=== PATIENT | female | born 1990 ===

== ENCOUNTER 2020-04-12 14:15 | Outpatient (REF) | payer OTHER, SELFPAY ==
[2020-04-12 17:02] LABS: Syphilis Screen Nonreactive (Nonreactive)
[2020-04-13 08:10] LABS: HIV AB/AG Nonreactive (Nonreactive); ~HepC Num1 0.09 S/CO (0.00-0.79); ~Hepatitis C Antibody Nonreactive (Nonreactive)
[2020-04-13 08:58] LABS: Hepatitis B Core Antibody Nonreactive (Nonreactive)
[2020-04-13 09:39] LABS: BV Int Neg Control Negative (Negative); BV Int Pos Control Positive (Positive)
[2020-04-14 00:16] LABS: C. trachomatis RNA TMA DETECTED (NOT DETECTED); N. gonorrhoeae RNA TMA NOT DETECTED (NOT DETECTED)
== END 2020-04-12 14:16 | disposition home or self-care (01) ==
LOC: HO.LAB 14:15
PROVIDERS: PCP Internal Medicine; Visit Provider Advanced Practice Midwife
DX: N89.8 Other specified noninflammatory disorders of vagina (principal); Z20.2 Contact with and (suspected) exposure to infections with a predominantly sexual mode of transmission; Z11.3 Encounter for screening for infections with a predominantly sexual mode of transmission; F17.200 Nicotine dependence, unspecified, uncomplicated
CPT/HCPCS: 36415; 86704; 86780; 86803; 87389; 87480; 87491; 87510; 87591; 87660; 99212

== ENCOUNTER 2020-08-11 14:01 | Outpatient (REF) | payer OTHER, SELFPAY ==
[2020-08-12 12:42] LABS: CT PCR NOT DETECTED (Not Detect.); NG PCR NOT DETECTED (Not Detect.)
[2020-08-12 12:47] LABS: BV Int Neg Control Negative (Negative); BV Int Pos Control Positive (Positive)
== END 2020-08-11 14:02 | disposition home or self-care (01) ==
LOC: HO.LAB 14:01
PROVIDERS: PCP Internal Medicine; Visit Provider Advanced Practice Midwife
DX: Z12.4 Encounter for screening for malignant neoplasm of cervix (principal); Z11.3 Encounter for screening for infections with a predominantly sexual mode of transmission; Z20.2 Contact with and (suspected) exposure to infections with a predominantly sexual mode of transmission; N89.8 Other specified noninflammatory disorders of vagina
CPT/HCPCS: 87480; 87491; 87510; 87591; 87660; 99212

== ENCOUNTER 2020-09-13 14:42 | Outpatient (REF) | payer OTHER, SELFPAY ==
[2020-09-14 02:38] LABS: CT PCR NOT DETECTED (Not Detect.); NG PCR NOT DETECTED (Not Detect.)
[2020-09-14 13:05] LABS: BV Int Neg Control Negative (Negative); BV Int Pos Control Positive (Positive)
== END 2020-09-13 14:43 | disposition home or self-care (01) ==
LOC: HO.LAB 14:42
PROVIDERS: PCP Internal Medicine; Visit Provider Advanced Practice Midwife
DX: Z11.3 Encounter for screening for infections with a predominantly sexual mode of transmission (principal); B37.3 Candidiasis of vulva and vagina; N20.2 Calculus of kidney with calculus of ureter; N89.8 Other specified noninflammatory disorders of vagina
CPT/HCPCS: 81025; 87480; 87491; 87510; 87591; 87660; 99212

== ENCOUNTER 2020-11-01 11:10 | Outpatient (REF) | payer OTHER, SELFPAY ==
[2020-11-02 05:25] LABS: CT PCR NOT DETECTED (Not Detect.); NG PCR NOT DETECTED (Not Detect.)
[2020-11-02 08:33] LABS: BV Int Neg Control Negative (Negative); BV Int Pos Control Positive (Positive)
== END 2020-11-01 11:11 | disposition home or self-care (01) ==
LOC: HO.LAB 11:10
PROVIDERS: PCP Internal Medicine; Visit Provider Obstetrics & Gynecology
DX: Z11.3 Encounter for screening for infections with a predominantly sexual mode of transmission (principal); R10.2 Pelvic and perineal pain
CPT/HCPCS: 81003; 81025; 87480; 87491; 87510; 87591; 87660; 99212

== ENCOUNTER 2020-11-01 11:52 | Emergency (ER) | payer OTHER, SELFPAY ==
--- NOTE | ~2020-11-01 | CT_ITS ---
EXAMINATION: CT ABDOMEN AND PELVIS WITHOUT CONTRAST CLINICAL INFORMATION: Right lower quadrant pain. Rule out appendicitis. COMPARISON: Pelvic ultrasound from earlier the same day TECHNIQUE: Multidetector volumetric imaging was performed from the superior aspect of the liver through the pubic symphysis. Sagittal and coronal reformatted images were obtained on the technologist's workstation. This CT examination was performed using dose optimization techniques as appropriate, variously including the following: *Automated exposure control *Adjustment of mA and/or kV according to patient size (this includes techniques or standardized protocols for targeted exams where dose is matched to indication/reason for exam; i.e. extremities or head) *Use of iterative reconstruction technique DLP: 560 mGy-cm FINDINGS: LUNG BASES: The visualized lung bases are unremarkable. LIVER, GALLBLADDER, AND BILIARY TREE: The liver is normal in size, shape, and attenuation. No focal hepatic lesion or biliary ductal dilatation is present. The gallbladder is unremarkable. There may be a phrygian cap. PANCREAS: Unremarkable. SPLEEN: Unremarkable. ADRENAL GLANDS: Unremarkable. KIDNEYS AND URETERS: The kidneys are normal in size, shape, and attenuation. No hydronephrosis, hydroureter, or calculi seen. No perinephric stranding. BLADDER: Unremarkable. GASTROINTESTINAL TRACT: The small and large bowel are unremarkable. The appendix is unremarkable. ABDOMINAL WALL: No significant hernia is appreciated. LYMPH NODES: Normal. VASCULAR: Unremarkable. PELVIC VISCERA: There is a 5.6 cm right adnexal cyst. This has a slightly thickened wall. The uterus and left adnexa are unremarkable. There is a small amount of fluid in the pelvis adjacent to the cyst.. OSSEOUS STRUCTURES: Unremarkable. CT/CT abdomen pelvis wo con IMPRESSION: 5.6 cm complex right adnexal cyst and small amount of adjacent fluid. Normal-appearing appendix.
--- NOTE | ~2020-11-01 | US_ITS ---
EXAMINATION: US PELVIS CLINICAL INFORMATION: Pelvic pain. COMPARISON: None TECHNIQUE: Ultrasound of the pelvis is performed using both transabdominal and transvaginal transducers along with Doppler. Transvaginal imaging is performed due to inadequate visualization transabdominally. FINDINGS: Uterus: The uterus is anteverted, anteflexed and measures 8.3 x 3.6 x 5.2 cm. The uterus is homogeneous in echotexture. The double wall endometrial thickness is 0.94 mm. The uterus is smooth in contour and has normal myometrial echogenicity. No visible fibroid. Adnexa: Both ovaries are visualized. There is normal color flow to the adnexa. There is no ovarian torsion. There is no pelvic ascites or fluid collection. Right ovary measures 7.6 x 5.6 x 8.0 and volume 178.1 mL. There are is an anechoic complex cyst measuring 4.7 x 5.0 x 4.6 cm. Left ovary measures 3.1 x 2.0 x 2.8 and volume 9.09 mL. There is normal bilateral Doppler flow seen to ovaries. US/US pelvic ovarian doppler IMPRESSION: Complex cyst right ovary measuring 5.0 cm. The left ovary is unremarkable. Normal bilateral Doppler ovarian flow seen.
--- NOTE | ~2020-11-01 | US_ITS ---
EXAMINATION: US PELVIS CLINICAL INFORMATION: Pelvic pain. COMPARISON: None TECHNIQUE: Ultrasound of the pelvis is performed using both transabdominal and transvaginal transducers along with Doppler. Transvaginal imaging is performed due to inadequate visualization transabdominally. FINDINGS: Uterus: The uterus is anteverted, anteflexed and measures 8.3 x 3.6 x 5.2 cm. The uterus is homogeneous in echotexture. The double wall endometrial thickness is 0.94 mm. The uterus is smooth in contour and has normal myometrial echogenicity. No visible fibroid. Adnexa: Both ovaries are visualized. There is normal color flow to the adnexa. There is no ovarian torsion. There is no pelvic ascites or fluid collection. Right ovary measures 7.6 x 5.6 x 8.0 and volume 178.1 mL. There are is an anechoic complex cyst measuring 4.7 x 5.0 x 4.6 cm. Left ovary measures 3.1 x 2.0 x 2.8 and volume 9.09 mL. There is normal bilateral Doppler flow seen to ovaries. US/US pelvic and transvaginal IMPRESSION: Complex cyst right ovary measuring 5.0 cm. The left ovary is unremarkable. Normal bilateral Doppler ovarian flow seen.
[2020-11-01 12:07] VITALS: BP 134/67; PULSE 88; RESP 18; TEMP 37.1; O2SAT 100; BMI 29.9
--- NOTE | 2020-11-01 12:34 | ED.GENADULT ---
HPI - General Adult General Chief complaint: Abdominal Pain Stated complaint: multiple complaints Time Seen by Provider: 11/01/20 12:32 Source: patient Mode of arrival: ambulatory Limitations: no limitations History of Present Illness HPI narrative: 30-year-old female came in for evaluation of pelvic pain. Pain started 2 weeks ago after sexual intercourse, pain gotten been better for the past 2 weeks until today she had a sexual intercourse and started to have lower pelvic pain, patient declined any vaginal bleed or discharge, no nausea, no vomiting. Patient describes the pain as constant for 2 weeks for gotten worse today after sexual intercourse, nothing make it better, no other associated symptoms, no nausea, no vomiting. Related Data Previous Rx's Medication Instructions Recorded fluconazole 150 mg tablet 150 mg PO Q3D #2 tab 09/14/20 Allergies Allergy/AdvReac Type Severity Reaction Status Date / Time No Known Allergies Allergy Verified 11/01/20 11:17 Review of Systems Review of Systems: All other systems are reviewed and are negative Constitutional: Reports as per HPI and Reports no additional constitutional complaints Eyes: Reports as per HPI and Reports no additional eye complaints Reports system reviewed and no additional complaints, except as documented Cardiovascular: Reports as per HPI and Reports no additional cardiovascular complaints Respiratory: Reports as per HPI and Reports no additional respiratory complaints Gastrointestinal: Reports as per HPI and Reports no additional gastrointestinal complaints Genitourinary: Reports no additional female genitourinary complaints Musculoskeletal: Reports no additional musculoskeletal complaints Skin/Breast: Reports system reviewed and no additional complaints, except as docu Psychiatric: Reports no additional psychiatric complaints Endocrine: Reports no additional endocrine complaints Hematologic/Lymphatic: Reports no additional hematologic/lymphatic complaints Allergic/Immunologic: Reports no additional allergic/immunologic complaints Reports system reviewed and no additional complaints, except as documented and Reports Abnormal speech present [facility] Past Medical History Medical History Nerve damage Surgical History H/O oral surgery Social History Social History Alcohol intake: never Patient Tobacco Use Status: Never used Tobacco Cigarettes Per Day: 3 Use of substances other than those prescribed or required for medical reasons: No Advance Directives: No Advance Directives Information Provided: No Gender identity: Female Physical Exam Vital Signs: Vital Signs: Last Vital Signs Temp 98.5 F 11/01/20 13:59 Pulse 78 11/01/20 13:59 Resp 16 11/01/20 13:59 BP 127/71 11/01/20 13:59 Pulse Ox 100 11/01/20 13:59 Body Mass Index 29.9 Vital signs have been reviewed as appeared to be correct. Blood pressure normal. Heart rate normal. Respiration rate normal. Temperature normal. Oxygen saturation normal. Appearance: Alert. Oriented X3. No acute distress. Head: Normal external exam. Normocephalic. Atraumatic. No Ochoa signs noted. No raccoon eyes noted Eyes: PERRLA. EOMI. Conjunctiva and sclera normal. Eyelids normal. ENT: TM's Normal. Pharynx normal. Uvula midline. Moist mucous membranes. No trismus noted. No drooling noted. No muffled voice noted. Neck: Normal inspection. Neck supple. FROM. No adenopathy. Thyroid Normal. No meningeal signs. No neck mass noted. CVS: Normal heart rate and rhythm. Heart sound normal. No murmurs noted. Pulses normal throughout. Respiratory: No respiratory distress. Painless inspiration. Breath sounds normal. No wheezes/rales/rhonchi noted. Chest nontender. No accessory muscle usage noted or decreased air movement noted. Abdomen: Soft and nontender. Bowel sounds normal in all 4 quadrants. No distention noted. No organomegaly noted. No visible injury noted. Pelvic exam, deferred was done by Dr. Gagandeep shaw today. Back: No CVA tenderness. Full range of motion noted. Skin: Skin warm and dry. Normal skin color. Normal skin turgor. No rashes/lesions/lacerations noted. Extremities: No lower extremity edema. Extremities exhibit normal range of motion. Extremities nontender. Neuro: Oriented X 3. Cranial nerve exam: II-XII are grossly intact No motor deficit. No sensory deficit. Reflexes normal. Course Course Course Narrative: Assessment and plan. [age] year old female referred from Dr. Donis ED for evaluation of right lower quadrant pain, await for CT of the abdomen pelvis to rule out acute appendicitis. As per Dr. Donis your recommendation if there is no acute appendicitis and the CT patient should be treated for PID. The case signed out to Dr. Soto. Medical Decision Making Lab Data Lab results reviewed: Yes I reviewed the patient's lab results. Result diagrams: 11/01/20 12:46 11/01/20 13:30 Labs: Lab Results 11/01/20 11/01/20 11/01/20 Range/Units 12:46 12:46 12:46 WBC 9.3 (4.8-10.8) X10*3/uL RBC 4.42 (4.20-5.50) X10*6/uL Hgb 13.2 (12.0-16.0) g/dl Hct 40.4 (37-47) % MCV 91.4 (80-98) fL MCH 29.9 (27.0-33.0) pg MCHC 32.7 (31.0-35.0) g/dl RDW 12.5 (11.0-16.0) % Plt Count 276 (160-400) X10*3/uL MPV 10.3 (9.4-12.3) fL Immature Gran % (Auto) 0.2 (0.0-0.4) % Neut % (Auto) 59.2 (45-73) % Lymph % (Auto) 31.8 (20-40) % [place] % (Auto) 6.9 (2-11) % Eos % (Auto) 1.4 (0-4) % Baso % (Auto) 0.5 (0-2) % Lymph # (Auto) 3.0 (1.2-4.9) X10*3/uL [place] # (Auto) 0.6 (0.1-1.2) X10*3/uL Eos # (Auto) 0.1 (0.0-0.4) X10*3/uL Baso # (Auto) 0.1 (0.0-0.2) X10*3/uL Abs Immat Gran (auto) 0.02 (0.00-0.03) X10*3/uL Absolute Neuts (auto) 5.5 (2.0-8.3) X10*3/uL Absolute Nucleated RBC 0.000 (0.0-0.012) X10*3/uL Nucleated RBC % (auto) 0.0 (0.0-0.2) /100WBC Sodium (135-145) mmol/L Potassium (3.3-5.1) mmol/L Chloride (96-108) mmol/L Carbon Dioxide (22-29) mmol/L Anion Gap (12-20) BUN (9-16) mg/dL Creatinine (0.5-1.4) mg/dL Estim Creat Clear Calc Estimated GFR Random Glucose (60-115) mg/dL Calcium (8.4-10.2) mg/dL Total Bilirubin (0.0-1.0) mg/dL Direct Bilirubin (0.0-0.5) mg/dL AST (5-31) U/L ALT (0-31) U/L Alkaline Phosphatase (39-117) U/L Total Protein (6.5-8.0) g/dL Albumin (3.5-5.0) g/dL Lipase (8-78) U/L Urine Color YELLOW Urine Appearance CLEAR Urine pH 6.0 (5.0-8.0) Ur Specific [place] 1.025 (1.005-1.025) Urine Protein NEG (NEG-TRACE) MG/DL Urine Glucose (UA) NEG (NEG) MG/DL Urine Ketones NEG (NEG) MG/DL Urine Blood TRACE (NEG) Urine Nitrite NEG (NEG) Ur Leukocyte Esterase NEG (NEG) Urine RBC 0-2 (0) /HPF Urine WBC 0-2 (0-4) /HPF Ur Squamous Epith Cells 2+ /LPF Urine Bacteria 1+ /LPF Urine Mucus 1+ /LPF Urine Test NEGATIVE (NEGATIVE) 11/01/20 Range/Units 13:30 WBC (4.8-10.8) X10*3/uL RBC (4.20-5.50) X10*6/uL Hgb (12.0-16.0) g/dl Hct (37-47) % MCV (80-98) fL MCH (27.0-33.0) pg MCHC (31.0-35.0) g/dl RDW (11.0-16.0) % Plt Count (160-400) X10*3/uL MPV (9.4-12.3) fL Immature Gran % (Auto) (0.0-0.4) % Neut % (Auto) (45-73) % Lymph % (Auto) (20-40) % [place] % (Auto) (2-11) % Eos % (Auto) (0-4) % Baso % (Auto) (0-2) % Lymph # (Auto) (1.2-4.9) X10*3/uL [place] # (Auto) (0.1-1.2) X10*3/uL Eos # (Auto) (0.0-0.4) X10*3/uL Baso # (Auto) (0.0-0.2) X10*3/uL Abs Immat Gran (auto) (0.00-0.03) X10*3/uL Absolute Neuts (auto) (2.0-8.3) X10*3/uL Absolute Nucleated RBC (0.0-0.012) X10*3/uL Nucleated RBC % (auto) (0.0-0.2) /100WBC Sodium 138 (135-145) mmol/L Potassium 4.0 (3.3-5.1) mmol/L Chloride 109 H (96-108) mmol/L Carbon Dioxide 22 (22-29) mmol/L Anion Gap 11 L (12-20) BUN 7 L (9-16) mg/dL Creatinine 0.64 (0.5-1.4) mg/dL Estim Creat Clear Calc 133.0 Estimated GFR > 60 Random Glucose 81 (60-115) mg/dL Calcium 8.5 (8.4-10.2) mg/dL Total Bilirubin 0.6 (0.0-1.0) mg/dL Direct Bilirubin < 0.2 (0.0-0.5) mg/dL AST 22 (5-31) U/L ALT 14 (0-31) U/L Alkaline Phosphatase 56 (39-117) U/L Total Protein 6.8 (6.5-8.0) g/dL Albumin 3.6 (3.5-5.0) g/dL Lipase 13 (8-78) U/L Urine Color Urine Appearance Urine pH (5.0-8.0) Ur Specific [place] (1.005-1.025) Urine Protein (NEG-TRACE) MG/DL Urine Glucose (UA) (NEG) MG/DL Urine Ketones (NEG) MG/DL Urine Blood (NEG) Urine Nitrite (NEG) Ur Leukocyte Esterase (NEG) Urine RBC (0) /HPF Urine WBC (0-4) /HPF Ur Squamous Epith Cells /LPF Urine Bacteria /LPF Urine Mucus /LPF Urine Test (NEGATIVE) Imaging Data Pelvic ultrasound: Radiologist's impression: Complex cyst right ovary measuring 5.0 cm. ? The left ovary is unremarkable. ? Normal bilateral Doppler ovarian flow seen. Discharge Plan Discharge Clinical Impression: Abdominal pain Prescriptions: No Action fluconazole 150 mg tablet 150 mg PO Q3D Qty: 2 RF: 2
[2020-11-01 12:50] LABS: MANUAL DIFF FLAG NO
[2020-11-01 12:53] LABS: Basophils Absolute Auto 0.1 X10*3/uL (0.0-0.2); Basophils Percent Auto 0.5 % (0-2); Eosinophils Absolute Auto 0.1 X10*3/uL (0.0-0.4); Eosinophils Percent Auto 1.4 % (0-4); Hematocrit 40.4 % (37-47); Hemoglobin 13.2 g/dl (12.0-16.0); Imm Gran Abs Auto 0.02 X10*3/uL (0.00-0.03); Imm Gran Pct Auto 0.2 % (0.0-0.4); Lymphocytes Percent Auto 31.8 % (20-40); Mean Corpuscular HGB Conc 32.7 g/dl (31.0-35.0); Mean Corpuscular Hemoglobin 29.9 pg (27.0-33.0); Mean Corpuscular Volume 91.4 fL (80-98); Mean Platelet Volume 10.3 fL (9.4-12.3); Monocytes Absolute Auto 0.6 X10*3/uL (0.1-1.2); Monocytes Percent Auto 6.9 % (2-11); Neutrophils Absolute Auto 5.5 X10*3/uL (2.0-8.3); Neutrophils Percent Auto 59.2 % (45-73); Platelet Count 276 X10*3/uL (160-400); Red Blood Count 4.42 X10*6/uL (4.20-5.50); Red Cell Distribution Width 12.5 % (11.0-16.0); White Blood Count 9.3 X10*3/uL (4.8-10.8)
[2020-11-01] MEDS: Morphine Sulfate 2 MG/ML CARTRIDGE IVPUSH (12:54)
[2020-11-01] MEDS: 0.9 % Sodium Chloride 1,000 ML 999 ML IVCONT (12:55)
[2020-11-01 13:01] LABS: Appearance Urine CLEAR; Color Urine YELLOW; Glucose Urine UA NEG (NEG); Leukocyte Esterase Urine NEG (NEG); Nitrite Urine NEG (NEG); Specific Gravity - Urine 1.025 (1.005-1.025); UACC Culture Trigger NO; Urine Blood TRACE (NEG); Urine Ketones NEG (NEG); Urine Protein NEG (NEG-TRACE)
[2020-11-01 13:02] LABS: UPreg QC Valid YES; Urine Pregnancy NEGATIVE (NEGATIVE)
[2020-11-01 13:14] LABS: Bacteria Urine 1+ /LPF; RBC Urine 0-2 /HPF (0); Squamous Epithelial Cell Urine 2+ /LPF
[2020-11-01 13:15] LABS: Mucus Urine 1+ /LPF; WBC Urine 0-2 /HPF (0-4)
[2020-11-01 13:59] VITALS: BP 127/71; PULSE 78; RESP 16; TEMP 36.9; O2SAT 100
[2020-11-01 13:59] LABS: Alanine Aminotransferase 14 U/L (0-31); Albumin Level 3.6 g/dL (3.5-5.0); Alkaline Phosphatase 56 U/L (39-117); Anion Gap 11 (12-20); Aspartate Amino Transferase 22 U/L (5-31); Bilirubin Direct < 0.2 mg/dL (0.0-0.5); Bilirubin Total 0.6 mg/dL (0.0-1.0); Blood Urea Nitrogen 7 mg/dL (9-16); Calcium 8.5 mg/dL (8.4-10.2); Carbon Dioxide 22 mmol/L (22-29); Chloride 109 mmol/L (96-108); Estimated Glomerular Filt Rate > 60; Glucose Random 81 mg/dL (60-115); Lipase 13 U/L (8-78); Sodium 138 mmol/L (135-145); Total Protein 6.8 g/dL (6.5-8.0)
[2020-11-01] MEDS: oxyCODONE HCl Immed Release 5 MG TABLET PO (16:30)
[2020-11-01] MEDS: metroNIDAZOLE 500 MG TABLET PO (18:07)
[2020-11-01] MEDS: cefTRIAXone sodium 500 MG, Lidocaine HCl 1 % MPF 1 ML IM (18:07)
== END 2020-11-01 18:11 | disposition home or self-care (01) ==
PROVIDERS: Emergency Provider Emergency Medicine; PCP Internal Medicine
DX: R10.30 Lower abdominal pain, unspecified (principal); Z79.899 Other long term (current) drug therapy; F17.210 Nicotine dependence, cigarettes, uncomplicated; Z71.6 Tobacco abuse counseling
CPT/HCPCS: 36415; 74176; 76830; 76856; 80048; 80076; 81001; 81003; 81025; 83690; 85025; 93975; 96361; 96365; 96374; 96375; 99284; 99285; J0696; J2270

== ENCOUNTER 2021-02-27 10:00 | Outpatient (REF) | payer OTHER, SELFPAY ==
[2021-02-28 05:26] LABS: CT PCR NOT DETECTED (Not Detect.); NG PCR NOT DETECTED (Not Detect.)
== END 2021-02-27 10:01 | disposition home or self-care (01) ==
LOC: HO.LAB 10:00
PROVIDERS: PCP Internal Medicine; Visit Provider Obstetrics & Gynecology
DX: R10.2 Pelvic and perineal pain (principal); R31.29 Other microscopic hematuria; N83.291 Other ovarian cyst, right side; F17.210 Nicotine dependence, cigarettes, uncomplicated
CPT/HCPCS: 87086; 87491; 87591; 99212

== ENCOUNTER 2021-03-15 14:38 | Outpatient (REF) | payer OTHER, SELFPAY ==
--- NOTE | ~2021-03-15 | US_ITS ---
EXAMINATION: US PELVIS CLINICAL INFORMATION: Ovarian cyst follow-up COMPARISON: Previous CT of the abdomen and pelvis pelvic ultrasound October 2020 TECHNIQUE: Ultrasound of the pelvis is performed using both transabdominal and transvaginal transducers along with Doppler. Transvaginal imaging is performed due to inadequate visualization transabdominally. FINDINGS: The uterus is retroverted and measures 8 x 3.2 x 3.4 cm in dimension. No focal uterine lesion is seen. Endometrial thickness is normal measuring 1.3 cm. The right ovary is enlarged and measures 5.8 x 4.9 x 4.8 cm, volume 71 mL. There is a 5 x 3.9 x 4.6 cm complex cyst in the right ovary with multiple septations. This may have an area of focal wall thickening or solid element for example, image 72. This is similar appearing to October 2020 exam. This is new compared to older exam from 2014. The left ovary is normal appearing and measures 3.8 x 2.2 x 2 cm. There is no fluid in the pelvis. US/US pelvic and transvaginal IMPRESSION: 5 x 3.9 x 4.6 cm complex right ovarian cyst with multiple septations similar to October 2020 exam.
== END 2021-03-15 14:39 | disposition home or self-care (01) ==
LOC: HO.US 14:38
PROVIDERS: Visit Provider Obstetrics & Gynecology
DX: N83.209 Unspecified ovarian cyst, unspecified side (principal); F17.210 Nicotine dependence, cigarettes, uncomplicated; R31.29 Other microscopic hematuria
CPT/HCPCS: 76830; 76856; 99212

== ENCOUNTER → 2021-03-29 10:38 | Outpatient (BNVA) | payer OTHER, SELFPAY | PROVIDERS: PCP Internal Medicine; Visit Provider Obstetrics & Gynecology ==

== ENCOUNTER 2021-04-09 14:33 | Outpatient (REF) | payer OTHER, SELFPAY ==
--- NOTE | ~2021-04-09 | CT_ITS ---
EXAMINATION: CT ABDOMEN AND PELVIS WITHOUT AND WITH CONTRAST CLINICAL INFORMATION: Microscopic hematuria COMPARISON: Previous CT of the abdomen and pelvis most recent October 2020 and pelvic ultrasound February 2021 TECHNIQUE: Multidetector volumetric imaging was performed of the abdomen and pelvis before and after the IV administration of 85 mL of Omnipaque 300 intravenous contrast. Sagittal and coronal reformatted images were obtained on the technologist's workstation. This CT examination was performed using dose optimization techniques as appropriate, variously including the following: *Automated exposure control *Adjustment of mA and/or kV according to patient size (this includes techniques or standardized protocols for targeted exams where dose is matched to indication/reason for exam; i.e. extremities or head) *Use of iterative reconstruction technique DLP: 869 mGy-cm FINDINGS: LUNG BASES: The visualized lung bases are unremarkable. LIVER, GALLBLADDER, AND BILIARY TREE: The liver is normal in size, shape, and attenuation. No focal hepatic lesion or biliary ductal dilatation is present. The gallbladder is contracted. PANCREAS: Unremarkable SPLEEN: Unremarkable ADRENAL GLANDS: Unremarkable KIDNEYS AND URETERS: There is abnormal rotation of both kidneys with anterior orientation of the renal pelvises. Kidneys are otherwise normal. No renal stone, mass or hydronephrosis is seen. The collecting systems are normal. The ureters are normal. BLADDER: Unremarkable GASTROINTESTINAL TRACT: The small and large bowel are unremarkable. The appendix is unremarkable. ABDOMINAL WALL: No significant hernia is appreciated. LYMPH NODES: Normal VASCULAR: Unremarkable PELVIC VISCERA: There is a 4 cm right ovarian cyst. The uterus and ovaries are otherwise unremarkable. OSSEOUS STRUCTURES: Unremarkable CT/CT abdomen pelvis wo/w con IMPRESSION: No cause of hematuria seen. 4 cm right ovarian cyst similar to previous exams. Fleischner guidelines were followed.
[2021-04-09] MEDS: iohexoL 350 MG/ML 100 ML INFUS..BTL IV (14:56)
== END 2021-04-09 14:34 | disposition home or self-care (01) ==
LOC: HO.CT 14:33
PROVIDERS: Visit Provider Obstetrics & Gynecology
DX: R31.29 Other microscopic hematuria (principal)
CPT/HCPCS: 74178; Q9967

== ENCOUNTER 2021-04-16 13:02 | Outpatient (REF) | payer OTHER, SELFPAY ==
[2021-04-17 06:06] LABS: CA-125 4 U/mL (<35)
== END 2021-04-16 13:03 | disposition home or self-care (01) ==
LOC: HO.LAB 13:02
PROVIDERS: PCP Internal Medicine; Visit Provider Obstetrics & Gynecology
DX: N83.299 Other ovarian cyst, unspecified side (principal)
CPT/HCPCS: 36415; 86304

== ENCOUNTER 2022-03-12 14:53 | Outpatient (REF) | payer OTHER, SELFPAY ==
--- NOTE | ~2022-03-12 | CT_ITS ---
EXAMINATION: CT HEAD WITHOUT CONTRAST CLINICAL INFORMATION: Headache. Unspecified. COMPARISON: CT head 12/18/2011. TECHNIQUE: Contiguous axial imaging was performed from the skull base to vertex without intravenous administration of contrast. This CT examination was performed using dose optimization techniques as appropriate, variously including the following: *Automated exposure control *Adjustment of mA and/or kV according to patient size (this includes techniques or standardized protocols for targeted exams where dose is matched to indication/reason for exam; i.e. extremities or head) *Use of iterative reconstruction technique DLP: 703 mGy-cm FINDINGS: No intrarenal hemorrhage, tumors or acute infarcts noted. The ventricles and sulci are normal in size and configuration. No focal parenchymal lesions of the brain or abnormal extra-axial fluid collections. The orbits and globes are normal in appearance. No significant opacification of the visualized paranasal sinuses, mastoid air cells and middle ear cavities. CT/CT head/brain wo IV con IMPRESSION: Normal unenhanced CT of the head.
== END 2022-03-12 14:54 | disposition home or self-care (01) ==
LOC: HO.CT 14:53
PROVIDERS: Visit Provider Nurse Practitioner Family
DX: R51.9 Headache, unspecified (principal); R41.3 Other amnesia; G89.29 Other chronic pain
CPT/HCPCS: 70450

== ENCOUNTER 2022-11-12 14:52 | Outpatient (REF) | payer OTHER, SELFPAY ==
[2022-11-13 15:38] LABS: BV Int Neg Control Negative (Negative); BV Int Pos Control Positive (Positive)
== END 2022-11-12 14:53 | disposition home or self-care (01) ==
LOC: HO.LNP 14:52
PROVIDERS: PCP Internal Medicine; Visit Provider Advanced Practice Midwife
DX: Z11.3 Encounter for screening for infections with a predominantly sexual mode of transmission (principal)
CPT/HCPCS: 87480; 87510; 87660; 99212

== ENCOUNTER 2022-11-12 14:52 | Outpatient (AMB) | payer OTHER, SELFPAY ==
[2022-11-12 15:08] VITALS: BP 114/70; BMI 27.3
--- NOTE | 2022-11-12 15:08 | MHC.OFFVIS ---
Intake Vital Signs 11/12/22 15:08 Height 5 ft 4 in Weight 159 lb BMI 27.3 BP 114/70 Intake Visit Reasons: STD Testing Do not reschedule Intake Note: full std testing Benefit Director Required: No Information Interpreted: non-clinical & clinical Python Programmer: Python Programmer Present (Tesha) Allergies No Known Allergies Allergy (Verified 11/12/22 15:11) Is last menstrual period known: Yes Last menstrual period: 11/08/22 Post menopausal: No HPI STD Testing Do not reschedule HPI Details Patient is here because she wishes to get checked for STDs she is not really having any symptoms but she wants to get checked she generally uses condoms but they broke she is not on anything else for control and does not desire anything else at this time. She also feels a lump and under her clavicle that she wonders if it is a swollen lymph node or something she has felt that for about a month. She is a smoker she denies any injuries to tissue or recent vaccinations or needles in that area. She has her 4-year-old son who is nonverbal with her. [facility] Medical History (Updated 11/12/22 @ 16:29 by Giovana Arnold CNM) Complex ovarian cyst Obesity (BMI 30-39.9) Smoker Nerve damage Surgical History (Updated 11/12/22 @ 15:13 by COREY Perez) Hx of unilateral oophorectomy H/O oral surgery Family History Mother No problems noted. Father High blood pressure Other Mental health problem Social History (Updated 11/12/22 @ 15:13 by COREY Perez) Housing: Apartment Alcohol intake: never Patient Tobacco Use Status: Current everyday Tobacco user Cigarettes Per Day: 3 Years Smoked: pt states quit 3 months ago Substance Use Type: Marijuana service: No Current occupational status: unemployed Gender identity: Female Cognitive needs: No Hearing needs: No Vision needs: No Female Reproductive History Menstrual Age of Menarche: 15 Duration of menses: 3-5 days Date of last menstrual period: 11/08/22 control method: none Total pregnancies: 1 Full term: 1 Number of Living Children: 1 Date of last pap smear: 06/19/18 (negative) History of abnormal pap smear: No Physical Exam Vital Signs: Last Vital Signs BP 114/70 11/12/22 15:08 BMI result Body Mass Index 27.3 Chest Chest palpation & inspection: normal inspection of the chest, normal palpation of entire chest wall and other ([place] like swelling underneath her left clavicle, high on chest wall) Breast/axilla inspection: normal inspection of the breasts and normal inspection of the axillae Breast/axilla palpation: normal palpation of the breasts, normal palpation of the axillae and no axillary lymphadenopathy Speculum Exam - Vagina: normal appearance of the vagina Speculum Exam - Cervix: normal appearance of the cervix, Cervical os closed and normal vervical discharge Assessment & Plan Assessment & Plan (1) Screen for sexually transmitted diseases: Code(s): Z11.3 - Encounter for screening for infections with a predominantly sexual mode of transmission Plan Speculum exam looked completely normal I showed the patient her cervix which looked a completely normal as well. She desires full testing for STIs so labs have been ordered she says she will go soon she patient states she is on the portal so she can get the results herself. We will call her for anything positive there was nothing abnormal that was apparent today. Discussed that condoms can be a very good protection for STIs which is why she uses them is just that sometimes the break. Orders: Orders Hepatitis C Antibody Today Z11.3 - Encounter for screening for infections with a predominantly sexual mode of transmission Bacterial Vaginosis Panel Today Z11.3 - Encounter for screening for infections with a predominantly sexual mode of transmission CT NG by PCR Today Z11.3 - Encounter for screening for infections with a predominantly sexual mode of transmission Syphilis Screen Today Z11.3 - Encounter for screening for infections with a predominantly sexual mode of transmission Hepatitis B Surface Antigen Today Z11.3 - Encounter for screening for infections with a predominantly sexual mode of transmission HIV Ab/Ag Today Z11.3 - Encounter for screening for infections with a predominantly sexual mode of transmission Coding Level of Care Code Est Pt Level 3 (12522) Diagnoses Screen for sexually transmitted diseases Z11.3
== END 2022-11-12 16:18 | disposition home or self-care (01) ==
LOC: HO.HWSM 14:52
PROVIDERS: PCP Internal Medicine; Visit Provider Advanced Practice Midwife
DX: Z11.3 Encounter for screening for infections with a predominantly sexual mode of transmission (principal)
CPT/HCPCS: 99213

== ENCOUNTER 2022-11-12 16:21 | Outpatient (REF) | payer OTHER, SELFPAY ==
[2022-11-12 23:10] LABS: CT PCR NOT DETECTED (Not Detect.); NG PCR NOT DETECTED (Not Detect.)
== END 2022-11-12 16:22 | disposition home or self-care (01) ==
LOC: HO.LAB 16:21
PROVIDERS: PCP Internal Medicine; Visit Provider Advanced Practice Midwife
DX: Z11.3 Encounter for screening for infections with a predominantly sexual mode of transmission (principal)
CPT/HCPCS: 0353U

== ENCOUNTER 2023-11-13 10:35 | Outpatient (REF) | payer OTHER, SELFPAY ==
[2023-11-14 12:23] LABS: CT PCR NOT DETECTED (Not Detect.); NG PCR NOT DETECTED (Not Detect.)
[2023-11-14 14:34] LABS: Bacterial Vaginosis PCR NEGATIVE (Negative); Candida Group PCR DETECTED (Not Detect); Candida glab krusei PCR NOT DETECTED (Not Detect); Trichomonas vaginalis PCR NOT DETECTED (Not Detect)
[2023-11-19 06:08] LABS: HPV 16 RNA NOT DETECTED (NOT DETECTED); HPV mRNA E6/E7 Detected (Not Detected)
== END 2023-11-13 10:36 | disposition home or self-care (01) ==
LOC: HO.LNP 10:35
PROVIDERS: PCP Internal Medicine; Visit Provider Advanced Practice Midwife
DX: Z01.419 Encounter for gynecological examination (general) (routine) without abnormal findings (principal); Z11.3 Encounter for screening for infections with a predominantly sexual mode of transmission
CPT/HCPCS: 0352U; 81025; 87491; 87591; 87624; 87625; 88175; 99395

== ENCOUNTER 2023-11-13 10:35 | Outpatient (AMB) | payer OTHER, SELFPAY ==
[2023-11-13 10:39] VITALS: BP 102/66; BMI 26.9
--- NOTE | 2023-11-13 10:39 | A.OFFVIS_ITS ---
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 She is managing to stay very calm and supportive and directive to within. She has no athletic coordinator concerns she uses either condoms or no sex for control she has lost lots of weight by cutting out sugar and soda and eating very healthy and drinking lots of water. All her time and energy is taken caring for him currently she lives in [place] and there is transportation challenges to get him to services so she does have somebody that is coming helping her currently with speech and other therapy they are done with early intervention at this point though things a quite challenging. She is interested in full STI testing the does not have concerns because she is very strict about her condom use. Her last menstrual period was October 24 and it was normal. [facility] Medical History (Updated 11/13/23 @ 11:21 by Giovana Arnold CNM) Complex ovarian cyst Obesity (BMI 30-39.9) Smoker Nerve damage Surgical History (Updated 11/12/22 @ 15:13 by COREY Perez) Hx of unilateral oophorectomy H/O oral surgery Family History Mother No problems noted. Father High blood pressure Other Mental health problem Social History (Updated 11/12/22 @ 15:13 by COREY Perez) Housing: Apartment Alcohol intake: never Patient Tobacco Use Status: Current everyday Tobacco user Cigarettes Per Day: 3 Years Smoked: pt states quit 3 months ago Substance Use Type: Marijuana Patient : No service: No Current occupational status: unemployed Gender identity: Female Cognitive needs: No Hearing needs: No Vision needs: No Female Reproductive History Menstrual Age of Menarche: 15 Date of last menstrual period: 10/25/23 Physical Exam Vital Signs: Last Vital Signs BP 102/66 11/13/23 10:39 BMI result Body Mass Index 26.9 Const General: healthy appearing, comfortable, no acute distress, well developed and alert Nutritional Appearance: average body habitus Orientation/consciousness: patient oriented x3 Limitations: no limitations HEENT Head: Yes normocephalic Neck Neck: Yes normal visual inspection Chest Chest palpation & inspection: normal inspection of the chest Breast/axilla inspection: normal inspection of the breasts and normal inspection of the axillae Breast/axilla palpation: normal palpation of the breasts and normal palpation of the axillae Resp Effort & Inspection: normal respiratory effort GI Inspection: Yes normal to inspection, No Abdominal wall edema and No distended Palpation (GI): Soft to palpation and nontender Other: External exam within normal limits vagina pink and moist cervix multiparous pink moist clear and white discharge consistent with luteal phase. Cervix long close thick mobile nontender uterus midposition to anteverted mobile nontender adnexa nontender not enlarged good tone with Kegel. General: Yes bladder normal to palpation External Female Exam: normal external appearance and normal appearance of the urethra Speculum Exam - Vagina: normal appearance of the vagina, normal palpation and normal vaginal discharge Speculum Exam - Cervix: normal appearance of the cervix, normal palpation and nontender Bimanual exam- vagina & uterus: normal bimanual exam, normal palpation, uterine size normal, bladder normal to palpation, consistency normal, normal palpation, uterine mobility normal, uterine shape normal, No Cervical tenderness present, non-tender and no cervical motion tenderness Bimanual Exam- Adnexa, other: normal adnexae, no masses, normal and No adnexal tenderness Neuro General: patient oriented x3 Results AMB Test Urine AMB Test Urine Negative Last Edit by Sarah Rocha on 11/13/23 10:54 Results Reviewed Results Reviewed: Laboratory Last Values [facility] Clinic Negative 11/13/23 10:53 Assessment & Plan Assessment & Plan (1) Screen for sexually transmitted diseases: Code(s): Z11.3 - Encounter for screening for infections with a predominantly sexual mode of transmission Category: Medical (2) Screen for sexually transmitted diseases: Code(s): Z11.3 - Encounter for screening for infections with a predominantly sexual mode of transmission Category: Medical (3) Well woman exam with routine gynecological exam: Code(s): Z01.419 - Encounter for gynecological examination (general) (routine) without abnormal findings Category: Medical (4) Uses condoms as primary control method: Code(s): Z78.9 - Other specified health status Category: Social Hx (5) Cervical cancer screening: Code(s): Z12.4 - Encounter for screening for malignant neoplasm of cervix Category: Medical Plan -----Discussed in this visit the following: healthy balanced diet, regular and consistent exercise, getting recommended health screens, doing the best she can for her particular health concerns, kegel exercises, pap smear screening and followup recommendations, mammography screening and SBE, normal changes in cycles in her life stage--- . We will place orders for STI blood work testing she can go downstairs she is on the portal and can get the results that way. Pap smear was done as well as testing for gonorrhea chlamydia trich Erma and Gardnerella but she has no symptoms. Orders: Orders AMB HCG Urine Test Today Z32.02 - Encounter for test, result negative Hepatitis B Surface Antigen Today Z01.419 - Encounter for gynecological examination (general) (routine) without abnormal findings, Z11.3 - Encounter for screening for infections with a predominantly sexual mode of transmission, Z12.4 - Encounter for screening for malignant neoplasm of cervix, Z78.9 - Other specified health status Hepatitis C Antibody Today Z01.419 - Encounter for gynecological examination (general) (routine) without abnormal findings, Z11.3 - Encounter for screening for infections with a predominantly sexual mode of transmission, Z12.4 - Encounter for screening for malignant neoplasm of cervix, Z78.9 - Other specified health status Syphilis Screen Today Z01.419 - Encounter for gynecological examination (general) (routine) without abnormal findings, Z11.3 - Encounter for screening for infections with a predominantly sexual mode of transmission, Z12.4 - Encounter for screening for malignant neoplasm of cervix, Z78.9 - Other specified health status HIV Ab/Ag Today Z01.419 - Encounter for gynecological examination (general) (routine) without abnormal findings, Z11.3 - Encounter for screening for infections with a predominantly sexual mode of transmission, Z12.4 - Encounter for screening for malignant neoplasm of cervix, Z78.9 - Other specified health status Coding Level of Care Code Est Pt Prev Care 18-39y([id number]) Diagnoses Screen for sexually transmitted diseases Z11.3 Well woman exam with routine gynecological exam Z01.419 Uses condoms as primary control method Z78.9 Cervical cancer screening Z12.4
== END 2023-11-13 11:31 | disposition home or self-care (01) ==
PROVIDERS: PCP Internal Medicine; Visit Provider Advanced Practice Midwife
DX: Z01.419 Encounter for gynecological examination (general) (routine) without abnormal findings (principal); Z32.02 Encounter for pregnancy test, result negative
CPT/HCPCS: 99395

== ENCOUNTER 2023-11-13 12:05 | Outpatient (REF) | payer OTHER, SELFPAY ==
[2023-11-14 08:12] LABS: Syphilis Screen Nonreactive (Nonreactive)
[2023-11-14 08:49] LABS: HBsAGNum1 0.54 S/CO (0.00-0.99); HIV AB/AG Nonreactive (Nonreactive); HIV Num 1 0.05 S/CO (0.00-0.99); Hepatitis B Surface Antigen Negative (Negative); ~HepC Num1 0.14 S/CO (0.00-0.79); ~Hepatitis C Antibody Nonreactive (Nonreactive)
== END 2023-11-13 12:06 | disposition home or self-care (01) ==
LOC: HO.HHCL 12:05
PROVIDERS: Visit Provider Advanced Practice Midwife
DX: Z01.419 Encounter for gynecological examination (general) (routine) without abnormal findings (principal); Z11.3 Encounter for screening for infections with a predominantly sexual mode of transmission; Z78.9 Other specified health status
CPT/HCPCS: 36415; 86780; 86803; 87340; 87389

== ENCOUNTER 2024-03-15 13:48 | Outpatient (AMB) | payer OTHER, SELFPAY ==
[2024-03-15 14:21] VITALS: BP 102/60; PULSE 76; TEMP 36.3; O2SAT 98; BMI 26.9
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
== END 2024-03-15 17:20 | disposition home or self-care (01) ==
PROVIDERS: PCP Internal Medicine
DX: Z00.00 Encounter for general adult medical examination without abnormal findings (principal); Z12.4 Encounter for screening for malignant neoplasm of cervix; Z11.3 Encounter for screening for infections with a predominantly sexual mode of transmission; Z87.828 Personal history of other (healed) physical injury and trauma; R41.3 Other amnesia; R51.9 Headache, unspecified; G89.29 Other chronic pain; R59.0 Localized enlarged lymph nodes; L72.0 Epidermal cyst; F17.200 Nicotine dependence, unspecified, uncomplicated; E66.3 Overweight

== ENCOUNTER → 2024-03-15 13:48 | Outpatient (BNVA) | payer OTHER, SELFPAY | PROVIDERS: PCP Internal Medicine | DX: Z00.00 Encounter for general adult medical examination without abnormal findings (principal); R41.3 Other amnesia; R51.9 Headache, unspecified; G89.29 Other chronic pain; R59.0 Localized enlarged lymph nodes; L72.0 Epidermal cyst; E66.3 Overweight; Z68.26 Body mass index [BMI] 26.0-26.9, adult; F17.200 Nicotine dependence, unspecified, uncomplicated; Z71.3 Dietary counseling and surveillance; Z87.828 Personal history of other (healed) physical injury and trauma | CPT/HCPCS: 96127; 99395 ==

== ENCOUNTER 2024-11-18 08:01 | Outpatient (AMB) | payer OTHER, SELFPAY ==
--- NOTE | 2024-11-18 08:15 | MHC.PC.OV ---
Vital Signs 11/18/24 08:16 Height 5 ft 4 in Weight 164 lb 4 oz BMI 28.2 BP 112/70 Blood Pressure Location Lt brachial Position Sitting Pulse 81 Pulse Source Pulse Oximeter Temp 96.9 F Temp Source Temporal Artery Scan Pulse Oximetry (%) 100 Oxygen Delivery Method Room Air Intake Visit Reasons: mild heart attack Intake Note: Patient is here to follow up on Mild heart attack. Television Specialist Required: No Accounts Payable Payroll Coordinator: Not Required per policy Accompanied by: Self / Same As Patient Allergies No Known Allergies Allergy (Verified 11/18/24 08:16) Tobacco use date assessed: 11/18/24 Dental Screening Dental Screen Date: 03/15/24 [facility] Medical History (Updated 03/15/24 @ 21:35 by JESSICA Cintron) Complex ovarian cyst Obesity (BMI 30-39.9) Smoker Nerve damage Surgical History Hx of unilateral oophorectomy H/O oral surgery Family History Mother No problems noted. Father High blood pressure Other Mental health problem Social History (Updated 11/18/24 @ 08:20 by COREY Mcneil) Housing: Apartment Alcohol intake: never Patient Tobacco Use Status: Current everyday Tobacco user Tobacco use type: Cigarette Cigarette Packs Per Day: 0.25 Cigarettes Per Day: 2 e-Cigarette/Vaping Use: Never Used Second Hand Smoke Exposure: Yes Substance Use Type: Marijuana service: No Current occupational status: unemployed Gender identity: Female Cognitive needs: No Hearing needs: No Vision needs: No Female Reproductive History Menstrual Age of Menarche: 15 Questionnaire Thrive Questionnaire Date Thrive assessed: 03/15/24 I am a: Patient What is your living situation today?: I have a steady place to live Within the past 12 months, did the food you bought not last and you didn't have the money to get more?: Never true Within the past 12 months, did you worry whether your food would run out before you got money to buy more?: Never true Do you have trouble paying for medicines?: No Do you have trouble getting transportation to medical appointments?: No Do you have trouble paying your heating and electricity bill?: No Do you have trouble taking care of your child, family member or friend?: No Do you have trouble with day-to-day activities such as bathing, preparing meals, shopping, managing finances, etc.?: No Are you currently unemployed and looking for a job?: No Are you interested in more education?: No Please select the resources that you would like help with: None Currently or been in a relationship where the following occur: No concerns reported THRIVE Score: 0 SIGRID-7 AMB Questionnaire SIGRID-7 Date SIGRID - 7 assessed: 03/15/24 Source: Developed by Drs. Neymar Elaine, Marilyn Santiago, Calvin Luis and colleagues, with an educational lakia from [employer]. Physical exam (Primary Care) Vital Signs: Last Vital Signs Temp 96.9 F 11/18/24 08:16 Pulse 81 11/18/24 08:16 BP 112/70 11/18/24 08:16 Pulse Ox 100 11/18/24 08:16 Oxygen Delivery Method Room Air 11/18/24 08:16 BMI result Body Mass Index 28.2 Tobacco/Smoking Status: Tobacco use Status Tobacco use date assessed 11/18/24 11/18/24 08:21 Patient Tobacco Use Status Current everyday Tobacco 11/18/24 08:21 Tobacco use type Cigarette 11/18/24 08:21 e-Cigarette/Vaping Use Never Used 11/18/24 08:21 Thrive Assessment: Date of Thrive Assessment Date Thrive assessed 03/15/24 11/18/24 08:21 Currently or been in a relationship where the following occur: No concerns reported Coding Level of Care Code Est Pt Level 4 (36211) Complex EM visit Add On G2211 Diagnoses Atypical chest pain R07.89 Assessment & Plan Assessment & Plan (1) Atypical chest pain: Code(s): R07.89 - Other chest pain Plan: History of Present Illness - The patient is a 34-year-old female presenting with concerns of cardiac symptoms, including chest discomfort and fatigue. - The patient reports episodes of chest discomfort and fatigue, with radiation to the shoulder and neck, occurring every few months. - The symptoms are accompanied by a sensation of needing to breathe heavily, though without actual breathing difficulties. - The patient has not sought medical evaluation for these symptoms until now. - The patient has no known family history of heart disease and denies any history of hypertension or substance use. - The patient has recently resumed smoking, consuming approximately two cigarettes per day. Social History - Tobacco Use: The patient reports smoking two cigarettes a day, having recently resumed after a period of cessation. - Family Status: The patient is currently homeschooling her [id number] son. Review of Systems - Cardiovascular: Reports episodes of chest discomfort and fatigue, with radiation to the shoulder and neck. Denies any known history of hypertension. - Respiratory: Reports a sensation of needing to breathe heavily, though denies actual breathing difficulties. Physical Exam General: Cooperative and healthy appearing Nutritional Appearance: Well nourished Orientation/consciousness: Patient oriented x3 Limitations: No limitations Head: Normal to inspection General: Appearance normal, both eyes and all related structures Neck: Normal visual inspection Chest: Normal palpation of entire chest wall Respiratory: Breath okay ormal respiratory effort Neurology: Patient oriented x3 Results Plan - An EKG has been ordered to evaluate the patient's cardiac symptoms. - The patient is advised to complete previously ordered blood work from February. Discussion Notes I discussed with the patient that the symptoms do not appear to be cardiac in origin, but an EKG will provide further information. I advised the patient to complete the EKG and blood work, and we will review the results to determine the next steps. Patient Instructions - Complete the EKG and blood work as ordered. - Follow up with the clinic to discuss the results and next steps. Orders: Orders ECG 12 lead EKG Today R07.89 - Other chest pain
[2024-11-18 08:16] VITALS: BP 112/70; PULSE 81; TEMP 36.1; O2SAT 100; BMI 28.2
== END 2024-11-18 08:45 | disposition home or self-care (01) ==
LOC: HO.HMCH 08:02
PROVIDERS: PCP Internal Medicine; Visit Provider Internal Medicine
DX: R07.89 Other chest pain (principal)

== ENCOUNTER → 2024-11-18 08:01 | Outpatient (REF) | payer OTHER, SELFPAY ==
--- NOTE | 2024-11-18 08:59 | ECG_ITS ---
Test Reason : chest pain Blood Pressure : */* mmHG Vent. Rate : 71 BPM Atrial Rate : 71 BPM P-R Int : 152 ms QRS Dur : 88 ms QT Int : 388 ms P-R-T Axes : 25 68 49 degrees QTcB Int : 421 ms Normal sinus rhythm Normal ECG When compared with ECG of 03-Mar-2017 05:59, No significant change was found Referred By: Jung Bernabe Electronically Signed By: Kirk Acevedo
[2024-11-18 09:12] LABS: MANUAL DIFF FLAG NO
[2024-11-18 09:24] LABS: Hematocrit 41.1 % (37.0-47.0); Hemoglobin 14.0 g/dl (12.0-16.0); Imm Gran Abs Auto 0.01 X10*3/uL (0.00-0.03); Imm Gran Pct Auto 0.2 % (0.0-0.4); Lymphocytes Absolute Auto 2.0 X10*3/uL (1.2-4.9); Mean Corpuscular HGB Conc 34.1 g/dl (31.0-35.0); Mean Corpuscular Hemoglobin 30.4 pg (27.0-33.0); Mean Corpuscular Volume 89.2 fL (80.0-98.0); NRBC Abs Auto 0.000 X10*3/uL (0.0-0.012); NRBC Pct Auto 0.0 /100WBC (0.0-0.2); Platelet Count 265 X10*3/uL (160-400); Red Blood Count 4.61 X10*6/uL (4.20-5.50); White Blood Count 5.9 X10*3/uL (4.8-10.8)
[2024-11-18 09:26] LABS: Appearance Urine Clear; Glucose Urine UA Negative (Negative); PH 6.0 (5.0-9.0); Specific Gravity - Urine 1.025 (1.005-1.025); UMIC TRIGGER UACC YES
[2024-11-18 10:04] LABS: Alanine Aminotransferase 16 U/L (0-31); Albumin Level 4.5 g/dL (3.5-5.0); Alkaline Phosphatase 59 U/L (39-117); Anion Gap 10 (12-20); Aspartate Amino Transferase 19 U/L (5-31); Blood Urea Nitrogen 9 mg/dL (9-16); Calcium 9.1 mg/dL (8.4-10.2); Carbon Dioxide 26 mmol/L (22-29); Chloride 108 mmol/L (96-108); Cholesterol 222 mg/dL (<200); Estimated Glomerular Filt Rate > 60; HDL Cholesterol 63 mg/dL (>40); Potassium 3.9 mmol/L (3.3-5.1); Sodium 140 mmol/L (135-145); Total Protein 7.5 g/dL (6.5-8.0); Triglycerides 56 mg/dL (<150)
[2024-11-18 10:16] LABS: Syphilis Screen Nonreactive (Nonreactive)
[2024-11-18 10:17] LABS: HIV Num 1 0.06 S/CO (0.00-0.99)
== END ==
LOC: HO.CARD 08:01
PROVIDERS: PCP Internal Medicine; Visit Provider Internal Medicine
DX: Z00.00 Encounter for general adult medical examination without abnormal findings (principal); Z11.3 Encounter for screening for infections with a predominantly sexual mode of transmission; R07.89 Other chest pain; E66.3 Overweight; E66.9 Obesity, unspecified; R51.9 Headache, unspecified; G89.29 Other chronic pain; F17.210 Nicotine dependence, cigarettes, uncomplicated; Z68.28 Body mass index [BMI] 28.0-28.9, adult
CPT/HCPCS: 36415; 80053; 80061; 81001; 82306; 84443; 85025; 86780; 87389; 93005; 99212

== ENCOUNTER → 2024-11-18 08:59 | Outpatient (BNV) | payer OTHER, SELFPAY | PROVIDERS: PCP Internal Medicine; Visit Provider Internal Medicine Cardiovascular Disease | DX: R07.89 Other chest pain (principal) | CPT/HCPCS: 93010 ==

== ENCOUNTER 2025-02-23 09:15 | Outpatient (REF) | payer OTHER, SELFPAY ==
[2025-02-28 15:31] LABS: Bacterial Vaginosis PCR NEGATIVE (Negative); Candida Group PCR NOT DETECTED (Not Detect); Candida glab krusei PCR NOT DETECTED (Not Detect); Trichomonas vaginalis PCR NOT DETECTED (Not Detect)
[2025-03-01 09:02] LABS: CT PCR NOT DETECTED (Not Detect.); NG PCR NOT DETECTED (Not Detect.)
== END 2025-02-23 09:16 | disposition home or self-care (01) ==
LOC: HO.LAB 09:15
PROVIDERS: PCP Internal Medicine; Visit Provider Advanced Practice Midwife
DX: Z01.419 Encounter for gynecological examination (general) (routine) without abnormal findings (principal); N89.8 Other specified noninflammatory disorders of vagina; Z20.2 Contact with and (suspected) exposure to infections with a predominantly sexual mode of transmission; Z78.9 Other specified health status
CPT/HCPCS: 81515; 87491; 87494; 87591

== ENCOUNTER 2025-02-23 09:15 | Outpatient (AMB) | payer OTHER, SELFPAY ==
--- NOTE | 2025-02-23 09:22 | A.OFFVIS_ITS ---
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 She uses condoms 100% for control and is very clear about that. 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 She does not have any other health concerns at this time. She is aware of the HPV on the Pap smear last year and so she is very much interested in having her Pap done this year as well. She is on the portal to look up negative lab results but we will inform her of anything positive. [facility] Medical History (Updated 03/15/24 @ 21:35 by JESSICA Cintron) Complex ovarian cyst Obesity (BMI 30-39.9) Smoker Nerve damage Surgical History (Updated 02/23/25 @ 09:47 by Giovana Arnold CNM) Hx of unilateral oophorectomy H/O oral surgery Family History Mother No problems noted. Father High blood pressure Other Mental health problem Social History (Updated 11/18/24 @ 08:20 by COREY Mcneil) Housing: Apartment Alcohol intake: never Patient Tobacco Use Status: Current everyday Tobacco user Tobacco use type: Cigarette Cigarette Packs Per Day: 0.25 Cigarettes Per Day: 2 e-Cigarette/Vaping Use: Never Used Second Hand Smoke Exposure: Yes Substance Use Type: Marijuana service: No Current occupational status: unemployed Gender identity: Female Cognitive needs: No Hearing needs: No Vision needs: No Female Reproductive History Menstrual Age of Menarche: 15 Duration of menses: 6-7 days Date of last menstrual period: 01/28/25 control method: none Total pregnancies: 1 Date of last pap smear: 06/19/18 (neg.) History of abnormal pap smear: Yes (2023.+HPV) Physical Exam Vital Signs: Last Vital Signs BP 126/78 02/23/25 09:23 BMI result Body Mass Index 31.6 Const General: healthy appearing, comfortable, no acute distress, well developed and alert Nutritional Appearance: average body habitus Orientation/consciousness: patient oriented x3 Limitations: no limitations HEENT Head: Yes normocephalic Neck Neck: Yes normal visual inspection Chest Chest palpation & inspection: normal inspection of the chest Breast/axilla inspection: normal inspection of the breasts and normal inspection of the axillae Breast/axilla palpation: normal palpation of the breasts and normal palpation of the axillae Resp Effort & Inspection: normal respiratory effort GI Inspection: Yes normal to inspection, No Abdominal wall edema and No distended Palpation (GI): Soft to palpation and nontender General: Yes bladder normal to palpation External Female Exam: normal external appearance and normal appearance of the urethra Speculum Exam - Vagina: normal appearance of the vagina, normal palpation and normal vaginal discharge Speculum Exam - Cervix: normal appearance of the cervix, normal palpation and nontender Bimanual exam- vagina & uterus: normal bimanual exam, normal palpation, uterine size normal, bladder normal to palpation, consistency normal, normal palpation, uterine mobility normal, uterine shape normal, No Cervical tenderness present, non-tender and no cervical motion tenderness Bimanual Exam- Adnexa, other: normal adnexae, no masses, normal and No adnexal tenderness Neuro General: patient oriented x3 Results Reviewed Results Reviewed: Pap smear done 11/13/2023 and sent to [facility] is in scanned lab section and not copy able to this space. However it is positive high-risk HPV with negative cytology Pap will be done today. Assessment & Plan Assessment & Plan (1) Well woman exam with routine gynecological exam: Code(s): Z01.419 - Encounter for gynecological examination (general) (routine) without abnormal findings Category: Medical (2) Cervical cancer screening: Comment: 11/13/23 pap is negative with positive HPV. Repeat 1 year. Code(s): Z12.4 - Encounter for screening for malignant neoplasm of cervix Category: Medical (3) Uses condoms as primary control method: Code(s): Z78.9 - Other specified health status Category: Social Hx (4) Screen for sexually transmitted diseases: Code(s): Z11.3 - Encounter for screening for infections with a predominantly sexual mode of transmission Category: Medical Plan -----Discussed in this visit the following: healthy balanced diet, regular and consistent exercise, getting recommended health screens, doing the best she can for her particular health concerns, kegel exercises, pap smear screening and followup recommendations, mammography screening and SBE, normal changes in cycles in her life stage--- . Pap smear done again this year because of her history of positive HPV last year. Labs done for gonorrhea chlamydia trichomoniasis as well as bacterial vaginosis and yeast and labs ordered for HIV hep B hep C and syphilis and she can go to the lab now she is on the portal so she can check her results there but we would notify her for anything positive . She is episcopal about using condoms, and she is not having any symptoms of a anything but she just wants to be sure. She keeps track of her. She is very clear she does not want to be on any other method of control she prefers how she feels off hormones. She is expecting her period in the next couple of days her last period was January 28. Orders: Orders Syphilis Screen Today Z01.419 - Encounter for gynecological examination (general) (routine) without abnormal findings, Z11.3 - Encounter for screening for infections with a predominantly sexual mode of transmission, Z12.4 - Encounter for screening for malignant neoplasm of cervix Hepatitis B Surface Antigen Today Z01.419 - Encounter for gynecological examination (general) (routine) without abnormal findings, Z11.3 - Encounter for screening for infections with a predominantly sexual mode of transmission, Z12.4 - Encounter for screening for malignant neoplasm of cervix Hepatitis C Antibody Today Z01.419 - Encounter for gynecological examination (general) (routine) without abnormal findings, Z11.3 - Encounter for screening for infections with a predominantly sexual mode of transmission, Z12.4 - Encounter for screening for malignant neoplasm of cervix HIV Ab/Ag Today Z01.419 - Encounter for gynecological examination (general) (routine) without abnormal findings, Z11.3 - Encounter for screening for infections with a predominantly sexual mode of transmission, Z12.4 - Encounter for screening for malignant neoplasm of cervix Coding Level of Care Code Est Pt Prev Care [id number]) Diagnoses Well woman exam with routine gynecological exam Z01.419 Cervical cancer screening Z12.4 Uses condoms as primary control method Z78.9 Screen for sexually transmitted diseases Z11.3
[2025-02-23 09:23] VITALS: BP 126/78; BMI 31.6
== END 2025-02-23 09:55 | disposition home or self-care (01) ==
LOC: HO.HWSM 09:15
PROVIDERS: PCP Internal Medicine; Visit Provider Advanced Practice Midwife
DX: Z01.419 Encounter for gynecological examination (general) (routine) without abnormal findings (principal); Z12.4 Encounter for screening for malignant neoplasm of cervix; Z78.9 Other specified health status; Z11.3 Encounter for screening for infections with a predominantly sexual mode of transmission
CPT/HCPCS: 99395; 99459

== ENCOUNTER 2025-02-23 10:36 | Outpatient (REF) | payer OTHER, SELFPAY | END 2025-02-23 10:37 | disposition home or self-care (01) | LOC: HO.LNP 10:36 | PROVIDERS: Visit Provider Advanced Practice Midwife | DX: Z01.419 Encounter for gynecological examination (general) (routine) without abnormal findings (principal); Z11.4 Encounter for screening for human immunodeficiency virus [HIV]; Z11.3 Encounter for screening for infections with a predominantly sexual mode of transmission | CPT/HCPCS: 87626; 88175 ==